=== PATIENT | female | born 1940 | race Caucasian/White ===

== ENCOUNTER → 2016-12-03 | Outpatient (CLI) | payer MEDICARE ==
[~2016-12-03] MED LIST: /WARF5TA OR; ACET65TA OR; ASPI81TA83 OR; ATEN25TA OR; ATEN50TA2 OR; CIPR500T4 OR; COUMADIN PO; FISH1000 OR; FLAG500T OR; INDAPAMIDE PO; LISI10TA4 OR; MIRALEX PO; NORV5TAB OR; OCEAN NASAL SPRAY; POTASSIUM CHLORIDE; QUESTRAN PO; VITAMIN D PO; ZETI10TA OR; [UNRECOGNIZED DRUG - OTHER] PO; indapamide PO; questran
--- NOTE | 2016-12-03 10:39 | REPMRS ---
Patient History The patient states she had a clinical breast exam in 07/2016. Patient is postmenopausal and has history of basal cell skin cancer at age 71. No known family history of cancer. Benign US guided breast biopsy of the left breast, September 11, 2010. Digital Woman Screen Mammo: December 03, 2016 - Exam #: [id number] Bilateral CC and MLO view(s) were taken. Technologist: Amanda Posey, Technologist Prior study comparison: November 29, 2015, bilateral digital mammo screening bilat, performed at [facility]. August 01, 2010, left breast diagnostic unilateral mammo, performed at [facility]. FINDINGS: There are scattered fibroglandular densities. There is a moderate amount of residual fibroglandular tissue which is fairly symmetric. There is no interval development of dominant mass, architectural distortion, or clustered microcalcification typical of malignancy. There has been no change in the appearance of the mammogram from the prior studies. ASSESSMENT: BI-RADS/ACR category 1 mammogram. Negative. Recommendation Routine screening mammogram of both breasts in 1 year (for women over age 40). This mammogram was interpreted with the aid of an FDA-approved computer-aided dectection system. Electronically Signed By: Silvestre Johnson MD 12/03/16 1038
--- NOTE | 2016-12-05 09:08 | DEXA ---
AP SPINE L1 - L4 1.094 -0.8 0.9 LT FEMUR TOTAL 0.819 -1.5 0.3 RT FEMUR TOTAL 0.802 -1.6 0.1 TOTAL BODY TOTAL OTHER DUAL FEMUR FRAX* ASSESSMENT Risk factors: Not performed. 10 year probability of fracture Major osteoporotic fracture % Hip fracture % COMMENTS: Normal bone densitometry of the spine. There is low bone density of the hips. The density of the spine is decreased 2.1% since the initial exam on 04/14/2005. The spine density has decreased 2.2% since the most recent exam on 07/11/2010. The density of the left hip has decreased 7.5% since the initial exam on 2005. The density of the left hip has decreased 6.9% since the most recent exam on 10/2010. The density of the right hip has decreased 12.9% since the initial exam on 04/14. The density of the right hip has decreased 10.3% since the most recent exam on 07/11/2010. FOLLOW-UP: Recommendation for the next bone density exam: 2 years. RICARDO
== END ==
LOC: M WHC 08:19
PROVIDERS: ATTEND Internal Medicine
DX: Z12.31 Encounter for screening mammogram for malignant neoplasm of breast (principal); Z13.820 Encounter for screening for osteoporosis; M81.0 Age-related osteoporosis without current pathological fracture; Z78.0 Asymptomatic menopausal state; M85.80 Other specified disorders of bone density and structure, unspecified site; Z85.828 Personal history of other malignant neoplasm of skin
CPT/HCPCS: 77080; G0202

== ENCOUNTER → 2017-10-23 | Outpatient (CLI) | payer MEDICARE | LOC: M WUC 11:25 | DX: M54.5 Low back pain (principal) | CPT/HCPCS: 72100 ==

== ENCOUNTER → 2018-11-16 | Outpatient (CLI) | payer MEDICARE ==
[~2018-11-16] MED LIST changes: -/WARF5TA OR; +COUM1TAB17 OR
--- NOTE | 2018-11-16 14:43 | REPMRS ---
Patient History The patient states she had a clinical breast exam in 07/2018. No known family history of cancer. Benign US guided breast biopsy of the left breast, September 11, 2010. Digital Woman Screen Mammo: November 16, 2018 - Exam #: [id number] Bilateral CC and MLO view(s) were taken. Technologist: Clarita Sanders Technologist Prior study comparison: December 03, 2016, digital woman screen mammo performed at [facility]. November 29, 2015, bilateral digital mammo screening bilat, performed at [facility]. July 11, 2010, digital bilateral screening mammo, performed at [facility]. FINDINGS: The breast tissue is heterogeneously dense. This may lower the sensitivity of mammography. There is a moderate amount of heterogeneously dense fibroglandular tissue which is fairly symmetric. There is no interval development of dominant mass, architectural distortion, or grouped microcalcification typical of malignancy. There has been no change in the appearance of the mammogram from the prior studies. 3-D tomosynthesis shows no additional findings. Assessment: BI-RADS/ACR category 1 mammogram. Negative Mammogram. Recommendation Routine screening mammogram of both breasts in 1 year (for women over age 40). This patient's Lifetime Breast Cancer RIsk is estimated at 2.4 %. This mammogram was interpreted with the aid of an FDA-approved computer-aided dectection system. Electronically Signed By: Silvestre Johnson MD 11/16/18 [id number]
== END ==
LOC: M WHC 13:24
PROVIDERS: ATTEND Internal Medicine
DX: Z12.31 Encounter for screening mammogram for malignant neoplasm of breast (principal); Z86.018 Personal history of other benign neoplasm

== ENCOUNTER → 2020-01-19 | Outpatient (CLI) | payer MEDICARE ==
--- NOTE | 2020-01-19 13:50 | REPMRS ---
Patient History The patient states she had a clinical breast exam in July 2019. No known family history of cancer. Benign US guided breast biopsy of the left breast, September 11, 2010. Digital Woman Screen Mammo: January 19, 2020 - Exam #: [id number] Bilateral CC and MLO view(s) were taken. Technologist: Vandana Mcconnell Technologist Prior study comparison: November 16, 2018, bilateral digital woman screen mammo performed at [facility]. December 03, 2016, digital woman screen mammo performed at [facility]. November 29, 2015, bilateral digital mammo screening bilat, performed at [facility]. FINDINGS: There are scattered fibroglandular densities. The Volpara volumetric breast density category is:B. There has been no change in the appearance of the mammogram from the prior studies. There is a mild amount of scattered fibroglandular density which is fairly symmetric. There is no interval development of dominant mass, architectural distortion, or grouped microcalcification suggestive of malignancy. 3-D tomosynthesis shows no additional findings. Assessment: BI-RADS/ACR category 1 mammogram. Negative Mammogram. Recommendation Routine screening mammogram of both breasts in 1 year (for women over age 40). This patient's Lifetime Breast Cancer Risk is estimated at 2.1 %. This mammogram was interpreted with the aid of an FDA-approved computer-aided dectection system. Electronically Signed By: Silvestre Johnson MD 01/19/20 [id number]
== END ==
LOC: M WHC 12:56
PROVIDERS: ATTEND Internal Medicine
DX: Z12.31 Encounter for screening mammogram for malignant neoplasm of breast (principal)

== ENCOUNTER → 2020-02-02 | Outpatient (CLI) | payer MEDICARE ==
--- NOTE | 2020-02-02 16:43 | REP ---
INDICATION: PAIN COMPARISON: None. TECHNIQUE: AP and lateral views obtained. FINDINGS: There is an impacted fracture of the distal radius. Appears to be slight dorsal angulation. No other acute fracture or dislocation is seen. There is significant narrowing, sclerosis and spurring at the joint between the trapezium and base of 1st metacarpal. IMPRESSION: Impacted fracture distal radius. <Electronically signed by Florencio Donahue > 02/02/20 [id number]
== END ==
LOC: M WUC 16:17
PROVIDERS: ATTEND Physician Assistant
DX: S52.592A Other fractures of lower end of left radius, initial encounter for closed fracture (principal); W01.0XXA Fall on same level from slipping, tripping and stumbling without subsequent striking against object, initial encounter; Y92.9 Unspecified place or not applicable; Y93.9 Activity, unspecified; Y99.9 Unspecified external cause status; M25.532 Pain in left wrist

== ENCOUNTER → 2021-05-04 | Outpatient (REF) | LOC: M LABSMTC 09:36 | PROVIDERS: ATTEND Pediatrics | DX: Z11.52 Encounter for screening for COVID-19 (principal) ==

== ENCOUNTER → 2022-08-07 | Outpatient (CLI) | payer MEDICARE | LOC: M WHC 13:20 | PROVIDERS: ATTEND Internal Medicine | DX: Z12.31 Encounter for screening mammogram for malignant neoplasm of breast (principal) ==

== ENCOUNTER → 2023-10-02 | Outpatient (CLI) | payer MEDICARE | LOC: M WHC 13:47 | PROVIDERS: ATTEND Internal Medicine | DX: Z12.31 Encounter for screening mammogram for malignant neoplasm of breast (principal) ==

== ENCOUNTER → 2024-08-11 | Outpatient (REF) | payer MEDICARE | LOC: M LAB REF 17:26 | PROVIDERS: ATTEND Internal Medicine | DX: Z11.59 Encounter for screening for other viral diseases (principal) ==